=== PATIENT | male | born 1955 | race African-American/Black ===

== ENCOUNTER 2019-08-05 10:46 | Emergency (ER) | payer OTHER ==
--- NOTE | 2019-08-05 17:04 | RAD ---
PORTABLE CHEST: 08/05/19 An AP portable film at 1138 shows a normal sized heart. There are no lobar infiltrates or effusions. There might be a little scarring in the lingula near the apex of the heart. The trachea is midline an d the mediastinum appears normal. IMPRESSION: No acute thoracic finding. POS: HOME
== END 2019-08-05 12:12 | disposition home or self-care (01) ==
LOC: BURERS 10:46
DX: U07.1 COVID-19 (principal); I10 Essential (primary) hypertension; J45.909 Unspecified asthma, uncomplicated; Z87.891 Personal history of nicotine dependence; Z79.899 Other long term (current) drug therapy
CPT/HCPCS: 71045